=== PATIENT | female | born 1945 | race Caucasian/White ===

== ENCOUNTER 2023-06-01 09:11 | Day surgery (SDC) | payer MEDICARE ==
[2023-05-25 14:28] LABS: BASOPHILS % (AUTO) 0.8 % (0-1); EOSINOPHILS # (AUTO) 0.2 X10'3 (0-0.9); EOSINOPHILS % (AUTO) 2.5 % (0-6); HEMATOCRIT 44.7 % (35.0-45.0); HEMOGLOBIN 14.9 g/dl (12.0-16.0); LYMPHOCYTES # (AUTO) 2.1 X10'3 (1.1-4.8); LYMPHOCYTES % (AUTO) 33.6 % (21-51); MEAN CORPUSCULAR HGB CONC 33.4 g/dL (33.0-36.5); MEAN CORPUSCULAR VOLUME 89.8 FL (78-98); MEAN PLATELET VOLUME 8.6 FL (7.4-10.4); MONOCYTES # (AUTO) 0.4 X10'3 (0-0.9); MONOCYTES % (AUTO) 6.5 % (2-12); NEUTROPHILS # (AUTO) 3.5 X10'3 (1.8-7.7); NEUTROPHILS % (AUTO) 56.6 % (42-75); PLATELET COUNT 192 X10'3 (140-440); RED BLOOD COUNT 4.97 X10'6 (4.20-5.60); RED CELL DISTRIBUTION WIDTH 13.6 % (11.5-14.5); WHITE BLOOD COUNT 6.2 X10'3 (4.5-11.0)
[2023-05-25 14:44] LABS: APTT 28 SECONDS (22-32); INR 1.1 INR; PROTHROMBIN TIME 11.3 SECONDS (9.0-12.0)
[2023-05-25 14:49] LABS: ALANINE AMINOTRANSFERASE 19 U/L (12-78); ALBUMIN 4.2 G/DL (3.4-5.0); ALBUMIN/GLOBULIN RATIO 1.4 (1.1-1.5); ALKALINE PHOSPHATASE 74 IU/L (46-116); ANION GAP 10 (8-16); ASPARTATE AMINO TRANSFERASE 15 U/L (10-37); BILIRUBIN,TOTAL 0.5 MG/DL (0.1-1.0); BLOOD UREA NITROGEN 16 MG/DL (7-18); BUN/CREATININE RATIO 19.8 (10.0-20.0); CALCIUM 9.4 MG/DL (8.5-10.1); CHLORIDE 105 MMOL/L (99-107); CREATININE 0.81 MG/DL (0.40-0.90); GLUCOSE 104 MG/DL (70-104); POTASSIUM 3.9 MMOL/L (3.5-5.1); SODIUM 140 MMOL/L (135-145); TOTAL CARBON DIOXIDE 25.4 MMOL/L (24-32); TOTAL PROTEIN 7.1 G/DL (6.4-8.2); eGFR 69 ML/MIN
[2023-06-01] VITALS (15 sets, daily range): BP systolic 107–159; BP diastolic 68–83; PULSE 54–85; RESP 6–16; TEMP 98.4; O2SAT 85–100
[~2023-06-01] VITALS: Ht 167.6 cm; Wt 84.4 kg
[~2023-06-01 09:11] MED LIST: ACET-2119 PO; ALEN70TA80 PO; ATOR20TA66 PO; LUTE1CAP5 PO; PANT40TA54 PO; [UNRECOGNIZED DRUG - OTHER]; cefazolin 2gm/D5W 100mL 100 ML IV ONE; famotidine 20mg tablet PO ONE; ringers solution, lacted 1,000 ML IV SCH
[2023-06-01] MEDS ORDERED: CIPR500T5 PO (09:47)
[2023-06-01] MEDS ORDERED: cefazolin 2gm/D5W 100mL 100 ML IV ONE (09:50)
[2023-06-01] MEDS ORDERED: famotidine 20mg tablet PO ONE (09:50)
[2023-06-01] MEDS ORDERED: fentaNYL/PF 50MCG/1 ML 2ML syringe ONE (10:41)
[2023-06-01] MEDS ORDERED: dexamethasone sod phosphate 10mg/ml inj ONE (10:44)
[2023-06-01] MEDS ORDERED: glycopyrrolate 0.2mg/ml inj ONE (10:44)
[2023-06-01] MEDS ORDERED: ondansetron/PF 4mg/2ml inj ONE (10:44)
[2023-06-01] MEDS ORDERED: sevoflurane 250ml liquid IH ONE (10:44)
[2023-06-01] MEDS ORDERED: neostigmine methylsulfate 1 MG/ML 10ml vial ONE (10:44)
[2023-06-01] MEDS ORDERED: LIDOcaine 1%/PF 5ML 10 MG/ML VIAL ONE (10:52)
[2023-06-01] MEDS ORDERED: rocuronium 10mg/ml inj IV ONE ×2 (10:52→11:08)
[2023-06-01] MEDS ORDERED: propofol inj 20 ML IV ONE (10:52)
[2023-06-01] MEDS ORDERED: succinylcholine 20mg/ml inj IV ONE (10:54)
[2023-06-01] MEDS ORDERED: BUPIVAcaine/PF 2.5 mg/ml (0.25%) 30ml vial IJ ONE (11:36)
[2023-06-01] MEDS ORDERED: methylene blue (5mg/ml) 50mg/10ml ampul IV ONE (11:37)
[2023-06-01] MEDS ORDERED: LIDOcaine 1% 30ml preserv. free vial IJ ONE (11:38)
[2023-06-01] MEDS ORDERED: ePHEDrine 50MG/ML INJ. ONE (11:44)
[2023-06-01] MEDS ORDERED: morphine 4 MG/ML inj SYRINge IV ONE (12:36)
--- NOTE | 2023-06-01 12:45 | NUR ---
Received from OR via BED, accompanied by Anesthesiologist and report given by Anesthesiologist. PATIENT WAKING UP, NO S/S OF PAIN, V/S WNL, SCD ON, 20G TO LUE, drsg to RIGHT BREAST X2 AND COMPRESSION BRA-CDI
[2023-06-01] MEDS ORDERED: morphine 2 MG/ML inj. syringe IV PRN (13:40)
[2023-06-01] MEDS ORDERED: ondansetron/PF 4mg/2ml inj IV PRN (13:40)
[2023-06-01] MEDS ORDERED: HYDROmorphone/PF 0.2 MG/ML SYRINGE IV PRN ×2 (13:40)
[2023-06-01] MEDS ORDERED: ringers solution, lacted 1,000 ML IV SCH (13:40)
[2023-06-01] MEDS ORDERED: HYDROcodone/acetaminophen 10/325mg tab PO STA (13:49)
--- NOTE | 2023-06-01 15:15 | NUR ---
PATIENT DISCHARGED FROM PACU IN STABLE CONDITION AFTER WRITTEN AND VERBAL DISCHARGE INSTRUCTIONS GIVEN. PATIENT GAVE VERBAL UNDERSTANDING OF INSTRUCTIONS GIVEN. PATIENT LEFT FACILITY VIA WHEELCHAIR WITH RN. Addendum: 06/01/23 at 1538 by Chayo Cano RN Amended: Links added.
== END 2023-06-01 15:15 | disposition home or self-care (01) ==
LOC: PAS 09:11
PROVIDERS: ATTEND Surgery
DX: C50.111 Malignant neoplasm of central portion of right female breast (principal); D23.5 Other benign neoplasm of skin of trunk; K21.9 Gastro-esophageal reflux disease without esophagitis; G47.00 Insomnia, unspecified; Z87.891 Personal history of nicotine dependence; Z90.710 Acquired absence of both cervix and uterus; Z98.890 Other specified postprocedural states; Z88.5 Allergy status to narcotic agent; Z79.899 Other long term (current) drug therapy; Z79.01 Long term (current) use of anticoagulants; R20.2 Paresthesia of skin
CPT/HCPCS: 11400; 12031; 19301; 36415; 38525; 38900; 76098; 76998; 80053; 82948; 85025; 85610; 85730; 93005; A6258; J0330; J0690; J1100; J1170; J2270; J2405; J2704; J2710; J3010; J3490; J7030; J7120; Q9968; Z7506; Z7508; Z7512; A4215; A4615; A4618; A7000